=== PATIENT | male | born 1945 | race Caucasian/White ===

== ENCOUNTER 2017-11-08 04:39 | Emergency (ER) | payer OTHER ==
[~2017-11-08] VITALS: Ht 157.5 cm; Wt 55.0 kg
[2017-11-08 04:46] VITALS: BP 145/67; PULSE 99; RESP 18; TEMP 101.7; O2SAT 95
[2017-11-08] MEDS ORDERED: LIPI80TA PO (05:07)
[2017-11-08] MEDS ORDERED: ASPI1CHW4 CHEW (05:07)
[2017-11-08] MEDS ORDERED: LISI-590 PO (05:07)
[2017-11-08] MEDS ORDERED: LEVO.075 PO (05:07)
[2017-11-08] MEDS ORDERED: MONT10TA2 PO (05:07)
[2017-11-08] MEDS ORDERED: TOPR50TA PO (05:07)
[2017-11-08] MEDS ORDERED: LEXA10TA PO (05:07)
[2017-11-08] MEDS ORDERED: LORA1TAB12 PO (05:07)
--- NOTE | 2017-11-08 05:22 | PD ---
HPI Chief Complaint: Fever Time Seen by Provider: 05:07 Travel History International Travel<30 days: No Contact w/Intl Traveler<30days: No Traveled to known affect area: No History of Present Illness HPI The patient is a 72-year-old male that states he has an itch she throat, fever up to 103.3 at home beginning about 3 days ago. He has diarrhea without nausea , abdominal pain or vomiting. He does have a bad cough. He feels generally weak. He denies any myalgias. PFSH Past Medical History Arthritis: Yes Anxiety: Yes Depression: Yes Cardiac Catheterization: Yes High Cholesterol: Yes Coronary Artery Disease: Yes Diabetes: Yes Patient Takes Glucophage: No Herniated Disk: Yes (LUMBAR L5-L6 "BULGING") Medical other: Yes (RHEUMATIC FEVER TWICE) Myocardial Infarction: Yes (X2) Thyroid Disease: Yes (HYPOTHYROIDISM) Triglycerides - High: Yes Tetanus Vaccination: < 5 Years Influenza Vaccination: Yes Past Surgical History Coronary Artery Bypass Graft: Yes (4 VESSEL: AGE 52) Eye Surgery: Yes (BILATERAL CATARACTS) Prostatectomy: Yes (TURP) Tonsillectomy: Yes Other Surgery: Yes ("BLADDER STONES REMOVED") Social History Alcohol Use: No Tobacco Use: No Substance Use: No Allergies-Medications (Allergen,Severity, Reaction): Coded Allergies: No Known Allergies (Unverified , 11/08/17) Reported Meds & Prescriptions Reported Meds & Active Scripts Active Reported Zestril (Lisinopril) 10 Mg Tab 10 Mg PO DAILY Aspirin 81 Low Dose (Aspirin) 81 Mg Chew 81 Mg CHEW DAILY Lexapro (Escitalopram Oxalate) 10 Mg Tab 10 Mg PO DAILY Lipitor (Atorvastatin Calcium) 80 Mg Tab 80 Mg PO HS Toprol XL (Metoprolol Succinate) 50 Mg Tab 50 Mg PO DAILY Synthroid (Levothyroxine Sodium) 75 Mcg Tab 75 Mcg PO DAILY Singulair (Montelukast Sodium) 10 Mg Tab 10 Mg PO DAILY Lorazepam 1 Mg Tab 1.5 Mg PO HS Review of Systems Except as stated in HPI: all other systems reviewed are Neg Physical Exam Narrative GENERAL: The patient is alert, oriented 3 in no respiratory distress. His vital signs show temperature 101.7 with pulse of 99 and blood pressure 145/67 but otherwise normal. SKIN: Focused skin assessment warm/dry. HEAD: Atraumatic. Normocephalic. EYES: Pupils equal and round. No scleral icterus. No injection or drainage. ENT: No nasal bleeding or discharge. Mucous membranes pink and moist. The tympanic membranes are clear and the throat shows no erythema, exudate nor abscess. NECK: Trachea midline. No JVD. CARDIOVASCULAR: Regular rate and rhythm. No murmur appreciated. RESPIRATORY: No accessory muscle use. Clear to auscultation. Breath sounds equal bilaterally. GASTROINTESTINAL: Abdomen soft, non-tender, nondistended. Hepatic and splenic margins not palpable. No guarding or rebound is present. MUSCULOSKELETAL: No obvious deformities. No clubbing. No cyanosis. No edema. NEUROLOGICAL: Awake and alert. No obvious cranial nerve deficits. Motor grossly within normal limits. Normal speech. PSYCHIATRIC: Appropriate mood and affect; insight and judgment normal. Data Data Last Documented VS Vital Signs Date Time Temp Pulse Resp B/P (MAP) Pulse Ox O2 Delivery O2 Flow Rate FiO2 11/08/17 05:44 98 Nasal Cannula 2.00 11/08/17 05:43 88 116/66 (83) 11/08/17 04:46 101.7 18 Orders Orders Group A Rapid Strep Screen (11/08/17 05:07) Influenzae A/B Antigen (11/08/17 05:07) Complete Blood Count With Diff (11/08/17 05:24) Comprehensive Metabolic Panel (11/08/17 05:24) Sodium Chlor 0.9% 1000 Ml Inj (Ns 1000 M (11/08/17 05:30) Strep Culture (Group A) (11/08/17 05:30) Labs Laboratory Tests Test 11/08/17 05:30 White Blood Count 10.7 TH/MM3 Red Blood Count 4.90 MIL/MM3 Hemoglobin 14.7 GM/DL Hematocrit 44.5 % Mean Corpuscular Volume 90.9 FL Mean Corpuscular Hemoglobin 30.1 PG Mean Corpuscular Hemoglobin Concent 33.1 % Red Cell Distribution Width 12.8 % Platelet Count 179 TH/MM3 Mean Platelet Volume 7.9 FL Neutrophils (%) (Auto) 85.6 % Lymphocytes (%) (Auto) 6.4 % Monocytes (%) (Auto) 5.4 % Eosinophils (%) (Auto) 0.2 % Basophils (%) (Auto) 2.4 % Neutrophils # (Auto) 9.1 TH/MM3 Lymphocytes # (Auto) 0.7 TH/MM3 Monocytes # (Auto) 0.6 TH/MM3 Eosinophils # (Auto) 0.0 TH/MM3 Basophils # (Auto) 0.3 TH/MM3 CBC Comment DIFF FINAL Differential Comment Blood Urea Nitrogen 14 MG/DL Creatinine 1.10 MG/DL Random Glucose 183 MG/DL Total Protein 6.7 GM/DL Albumin 3.2 GM/DL Calcium Level 8.3 MG/DL Aspartate Amino Transf (AST/SGOT) 22 U/L Alanine Aminotransferase (ALT/SGPT) 18 U/L Total Bilirubin 0.8 MG/DL Sodium Level 131 MEQ/L Potassium Level 3.7 MEQ/L Chloride Level 100 MEQ/L Carbon Dioxide Level 23.8 MEQ/L Anion Gap 7 MEQ/L Estimat Glomerular Filtration Rate 66 ML/MIN [facility] Medical Decision Making Medical Screen Exam Complete: Yes Emergency Medical Condition: Yes Medical Record Reviewed: Yes Interpretation(s) The CBC is normal except for 86% neutrophils. The influenza A/B antigen is positive for flu B antigen. The strep screen is negative for group A strep antigen. Differential Diagnosis Influenza, nonspecific viral syndrome, strep pharyngitis, viral pharyngitis, electrolyte disorder, anemia Narrative Course The patient has influenza B. He needs to rest, increase liquids and follow-up with his primary care physician next week. Diagnosis Primary Impression: Influenza B Med/Other Pt SpecificInfo: Prescription(s) given Scripts Guaifenesin-Codeine Liq (Guaifenesin AC Liq) 100-10 Mg/5 Ml Syrp 10 ML PO Q4H Y for COUGH, #1 BOTTLE 0 Refills Prov: Broderick Mac MD 11/08/17 Disposition: 01 DISCHARGE HOME Condition: Stable Broderick Mac MD Nov 08, 2017 05:22
[2017-11-08] MEDS ORDERED: SODIUM CHLOR 0.9% 1000 ML INJ 1,000 ML IV SCH (05:30)
[2017-11-08 05:43] VITALS: BP 116/66; PULSE 88; O2SAT 95
[2017-11-08 05:49] LABS: AUTOMATED NEUTROPHIL # 9.1 TH/MM3 (1.8-7.7); BASOPHIL # 0.3 TH/MM3 (0-0.2); BASOPHIL % 2.4 % (0.0-2.0); EOSINOPHIL % 0.2 % (0.0-4.0); HEMATOCRIT 44.5 % (39.0-51.0); HEMOGLOBIN 14.7 GM/DL (13.0-17.0); LYMPH % 6.4 % (9.0-44.0); LYMPHOCYTE # 0.7 TH/MM3 (1.0-4.8); MEAN CELL VOLUME 90.9 FL (80.0-100.0); MEAN CORPUSCULAR HEMOGLOBIN 30.1 PG (27.0-34.0); MEAN CORPUSCULAR HGB CONC 33.1 % (32.0-36.0); MEAN PLATELET VOLUME 7.9 FL (7.0-11.0); MONO % 5.4 % (0.0-8.0); MONOCYTE # 0.6 TH/MM3 (0-0.9); NEUT % 85.6 % (16.0-70.0); PLATELET COUNT 179 TH/MM3 (150-450); RED CELL DISTRIBUTION WIDTH 12.8 % (11.6-17.2); WHITE BLOOD COUNT 10.7 TH/MM3 (4.0-11.0)
[2017-11-08 05:59] LABS: CHLORIDE 100 MEQ/L (98-107); SODIUM (NA) 131 MEQ/L (136-145)
[2017-11-08 06:01] LABS: CALCIUM 8.3 MG/DL (8.5-10.1)
[2017-11-08 06:02] LABS: ALBUMIN 3.2 GM/DL (3.4-5.0); BICARBONATE 23.8 MEQ/L (21.0-32.0); BLOOD UREA NITROGEN 14 MG/DL (7-18); GLUCOSE,RANDOM 183 MG/DL (74-106)
[2017-11-08 06:05] LABS: ALT (GPT) 18 U/L (12-78); AST (GOT) 22 U/L (15-37); GLOMERULAR FILTRATION RATE 66 ML/MIN (>89)
[2017-11-08 06:07] LABS: TOTAL BILIRUBIN ADULT 0.8 MG/DL (0.2-1.0); TOTAL PROTEIN 6.7 GM/DL (6.4-8.2)
[2017-11-08 06:08] LABS: ALKALINE PHOSPHATASE 61 U/L (45-117)
[2017-11-08] MEDS ORDERED: GUAISYP4 PO (06:12)
[2017-11-08] MEDS ORDERED: IBUP-232 PO (06:16)
[2017-11-08] MEDS ORDERED: IBUPROFEN 800 MG TAB PO ONE (06:30)
== END 2017-11-08 06:32 | disposition home or self-care (01) ==
LOC: PHED 04:39
DX: J10.89 Influenza due to other identified influenza virus with other manifestations (principal); R05 Cough; I25.810 Atherosclerosis of coronary artery bypass graft(s) without angina pectoris
CPT/HCPCS: 80053; 85025; 87081; 87804; 87880; 96360; 99284; J7030